=== PATIENT | male | born 1990 | race Two or more races ===

== ENCOUNTER 2022-09-17 07:41 | Emergency (ER) | payer MEDICAID ==
[~2022-09-17] VITALS: Ht 170.2 cm; Wt 80.0 kg
[2022-09-17 08:20] LABS: CLARITY,URINE CLEAR (Clear); COLOR,URINE YELLOW (Yellow); GLUCOSE, URINE NEGATIVE (Neg); KETONES,URINE 15 mg/dl (Neg); LEUKOCYTE ESTERASE ,URINE NEGATIVE (Neg); NITRITES, URINE NEGATIVE (Neg); OCCULT BLOOD,URINE LARGE (Neg); PH,URINE 5.5 (4.8-8.0); PROTEIN,URINE 30 mg/dl (Neg); UROBILINOGEN,URINE 0.2 E.U/dL (0.2-1.0)
[2022-09-17 08:22] LABS: BASOPHILS % (AUTO) 0 % (0-1); EOSINOPHILS % (AUTO) 0.3 % (0-6); HEMATOCRIT 46.8 % (42.0-52.0); HEMOGLOBIN 15.7 g/dl (14.0-17.9); LYMPHOCYTES % (AUTO) 8.8 % (21-51); MEAN CORPUSCULAR HEMOGLOBIN 29.6 PG (27.0-31.0); MEAN CORPUSCULAR HGB CONC 33.5 g/dL (33.0-36.5); MEAN CORPUSCULAR VOLUME 88.5 FL (78-98); MEAN PLATELET VOLUME 10.2 FL (7.4-10.4); MONOCYTES # (AUTO) 0.7 X10'3 (0-0.9); MONOCYTES % (AUTO) 6.6 % (2-12); NEUTROPHILS % (AUTO) 84.3 % (42-75); PLATELET COUNT 177 X10'3 (140-440); RED BLOOD COUNT 5.28 X10'6 (4.70-6.10); RED CELL DISTRIBUTION WIDTH 13.9 % (11.5-14.5); WHITE BLOOD COUNT 10.7 X10'3 (4.5-11.0)
[2022-09-17 08:25] LABS: UA COLLECTION TYPE CLN CATCH MIDSTREAM
[2022-09-17 08:28] LABS: WBC,URINE 0-4 /HPF (0-4)
[2022-09-17 08:29] LABS: ALANINE AMINOTRANSFERASE 22 U/L (12-78); ALBUMIN 4.1 G/DL (3.4-5.0); ALBUMIN/GLOBULIN RATIO 1.1 (1.1-1.5); ALKALINE PHOSPHATASE 78 IU/L (46-116); ANION GAP 9 (8-16); ASPARTATE AMINO TRANSFERASE 26 U/L (10-37); BILIRUBIN,TOTAL 0.4 MG/DL (0.1-1.0); BLOOD UREA NITROGEN 10 MG/DL (7-18); CALCIUM 8.9 MG/DL (8.5-10.1); CHLORIDE 104 MMOL/L (99-107); GLUCOSE 103 MG/DL (70-104); LIPASE 111 U/L (73-393); POTASSIUM 3.7 MMOL/L (3.5-5.1); SODIUM 139 MMOL/L (135-145); TOTAL CARBON DIOXIDE 25.9 MMOL/L (24-32); TOTAL PROTEIN 7.8 G/DL (6.4-8.2); eGFR 86 ML/MIN
[2022-09-17 08:29] LABS: BACTERIA,URINE NONE SEEN /HPF (Neg); SQUAMOUS EPITHELIAL CELL,UR NONE SEEN /LPF (FEW)
[2022-09-17] MEDS ORDERED: normal saline 1000ML IV soln IVB ONE (11:00)
[2022-09-17] MEDS ORDERED: ketorolac trometh. 30mg/ml inj. IV ONE (11:00)
[2022-09-17] MEDS ORDERED: ondansetron/PF 4mg/2ml inj IV ONE (11:00)
[2022-09-17] MEDS ORDERED: tamsulosin 0.4mg capsule PO STA (11:00)
[2022-09-17 12:52] VITALS: BP 125/89
== END 2022-09-17 12:54 | disposition home or self-care (01) ==
LOC: ER 07:42
DX: N20.0 Calculus of kidney (principal); R10.31 Right lower quadrant pain
CPT/HCPCS: 36415; 74176; 80053; 81001; 83690; 85025; 96361; 96374; 96375; 99284; J1885; J2405; J7030

== ENCOUNTER 2022-12-28 20:02 | Emergency (ER) | payer SELFPAY ==
[~2022-12-28] VITALS: Ht 177.8 cm; Wt 63.6 kg
[2022-12-28] MEDS ORDERED: iohexol 350MG/ML 100ml bottle IV ONE (20:51)
[2022-12-28 21:34] LABS: ALANINE AMINOTRANSFERASE 24 U/L (12-78); ALBUMIN/GLOBULIN RATIO 0.7 (1.1-1.5); ALKALINE PHOSPHATASE 72 IU/L (46-116); ANION GAP 9 (8-16); ASPARTATE AMINO TRANSFERASE 14 U/L (10-37); BILIRUBIN,TOTAL 0.8 MG/DL (0.1-1.0); BLOOD UREA NITROGEN 10 MG/DL (7-18); BUN/CREATININE RATIO 9.2 (10.0-20.0); CALCIUM 8.9 MG/DL (8.5-10.1); CHLORIDE 101 MMOL/L (99-107); CREATININE 1.09 MG/DL (0.60-1.10); GLUCOSE 104 MG/DL (70-104); POTASSIUM 3.3 MMOL/L (3.5-5.1); SODIUM 136 MMOL/L (135-145); TOTAL CARBON DIOXIDE 25.9 MMOL/L (24-32); TOTAL PROTEIN 7.6 G/DL (6.4-8.2); eGFR 78 ML/MIN
[2022-12-28] MEDS ORDERED: CefTRIAXone 2gm/D5W 50ml BAG 50 ML IV ONE (21:35)
[2022-12-28] MEDS ORDERED: azithromycin/NS 500mg/250ml 250 ML IV ONE (21:35)
[2022-12-28 21:39] LABS: BASOPHILS # (AUTO) 0.2 X10'3 (0-0.2); EOSINOPHILS # (AUTO) 0.1 X10'3 (0-0.9); EOSINOPHILS % (AUTO) 0.2 % (0-6); HEMATOCRIT 37.3 % (42.0-52.0); HEMOGLOBIN 12.7 g/dl (14.0-17.9); LYMPHOCYTES # (AUTO) 1.7 X10'3 (1.1-4.8); MEAN CORPUSCULAR HEMOGLOBIN 29.7 PG (27.0-31.0); MEAN CORPUSCULAR HGB CONC 34.2 g/dL (33.0-36.5); MEAN CORPUSCULAR VOLUME 86.8 FL (78-98); MONOCYTES # (AUTO) 1.4 X10'3 (0-0.9); MONOCYTES % (AUTO) 5.8 % (2-12); NEUTROPHILS # (AUTO) 20.2 X10'3 (1.8-7.7); RED BLOOD COUNT 4.29 X10'6 (4.70-6.10); RED CELL DISTRIBUTION WIDTH 13.9 % (11.5-14.5); WHITE BLOOD COUNT 23.6 X10'3 (4.5-11.0)
[2022-12-28] MEDS ORDERED: PRED20TA PO (21:44)
[2022-12-28] MEDS ORDERED: AMOX-117 PO (21:44)
[2022-12-28] MEDS ORDERED: AZIT500T PO (21:44)
[2022-12-28] MEDS ORDERED: ALBU6.7H14 INH (21:44)
[2022-12-28] MEDS ORDERED: methylPREDNISolone sod succ 125mg/2ml vial IV ONE (21:45)
[2022-12-28] MEDS ORDERED: ipratropium/albuterol 3ml nebule NEB ONE (21:45)
[2022-12-28 22:18] LABS: PLATELET COUNT 127 X10'3 (140-440)
[2022-12-28 22:25] LABS: TOTAL CELLS COUNTED 100
[2022-12-28 22:26] LABS: PLATELET ESTIMATE NORMAL
[2022-12-28 23:14] VITALS: BP 106/76
== END 2022-12-28 23:15 | disposition home or self-care (01) ==
LOC: ER 20:02
DX: J18.9 Pneumonia, unspecified organism (principal); Z79.899 Other long term (current) drug therapy
CPT/HCPCS: 36415; 71046; 71275; 80053; 84484; 85007; 85025; 94640; 96365; 96367; 96375; 99285; J0456; J0696; J2930; J3490; Q9967; 94760

== ENCOUNTER 2022-12-29 15:48 | Emergency (ER) | payer MEDICAID ==
[~2022-12-29] VITALS: Ht 177.8 cm; Wt 80.0 kg
[~2022-12-29 15:48] MED LIST: ALBU6.7H14 INH; AMOX-117 PO; AZIT500T PO; PRED20TA PO
[2022-12-29 16:13] VITALS: BP 100/64
== END 2022-12-29 16:24 | disposition home or self-care (01) ==
LOC: ER 15:49
DX: J18.9 Pneumonia, unspecified organism (principal); Z79.899 Other long term (current) drug therapy
CPT/HCPCS: 99281